=== PATIENT | male | born 1955 | race Caucasian/White ===

== ENCOUNTER 2023-12-04 09:46 | Outpatient (AMB) | payer MEDICARE, SELFPAY ==
--- NOTE | 2023-12-04 10:42 | HO.SPINEOV ---
Intake Visit Reasons: extremity weakness Intake Note: Mr. Rawls is here today c/o Low back pain. Balance Wheel Screw Hole Driller Required: No Allergies amoxicillin Allergy (Unknown, Verified 12/04/23 10:43) Diarrhea Assessment & Plan Assessment & Plan (1) Lumbar spinal stenosis due to adjacent segment disease after fusion procedure: Code(s): M48.061 - Spinal stenosis, lumbar region without neurogenic claudication; M51.36 - Other intervertebral disc degeneration, lumbar region Category: Medical Plan Dear colleague Thank you for referring Maik Rawls to the office today with a chief complaint of progressive right leg weakness. HPI: This 68-year-old male has an extensive spinal surgical history. He underwent an L3-4 and L4-5 decompression and finally a L3-4 fusion in 2021 for pain down his right leg and back pain. He recovered well from surgery and was symptom-free until August of this year where he developed progressive weakness of his right leg. He has fallen several times as his leg suddenly gives out. He also has a right stabbing pain on the right side of his back and a pain located on the medial side of his zayas and ankle. He developed persistent numbness of his left thigh after the last surgery. He tried physical therapy in the past without success. He is doing home exercises without success. PMH: Hypertension Medications: Lisinopril Allergies: Amoxicillin Social history: . Retired. Nonsmoker Physical Exam: Pleasant male. On inspection there is clear atrophy of his fright quadriceps. There is a grade 4/5 weakness of his right quadriceps. The knee reflex is decreased on the right side. There is hypoesthesia of the left thigh area. No pathological reflexes. Radiological Studies: MRI done at [facility] on 11/28/2023 show status post L3-4 fusion and interlaminar decompression L3-4 and L4-5 but more importantly there is severe right L4 foraminal stenosis. Impression/Plan: This patient is suffering from a right L4 radiculopathy with progressive weakneess due to severe right L4 foraminal stenosis and adjacent degenerative disc disease. I do not think that a simple decompression is going to be beneficial. Moreover there will be significant scar tissue from 3 previous surgeries interfering with the success over decompress the surgery. Therefore I recommended an additional minimally invasive fusion L4-5 through an oblique lumbar interbody fusion to indirectly decompress the foramen. I described the procedure complications expected postoperative course. He is going to think about this option and will call my office if he wants to proceed. He is aware that the weakness may not respond at all to surgery. Thank you for allowing me to participate in your patients care. total time spent was 50 minutes in counseling ,coordination of plan, personal review of imaging, surgical decision making and subsequent plan Jonny Omer MD, PhD Spine Fellowship Trained Neurosurgeon Director, [facility] Coding Level of Care Code New Pt Level 4 (22607) Diagnoses Lumbar spinal stenosis due to adjacent segment disease after fusion procedure M48.061; M51.36
== END 2023-12-04 11:44 | disposition home or self-care (01) ==
PROVIDERS: PCP Nurse Practitioner Family; Referring Provider Nurse Practitioner Family; Visit Provider Neurological Surgery
DX: M48.061 Spinal stenosis, lumbar region without neurogenic claudication (principal); M51.36 Other intervertebral disc degeneration, lumbar region
CPT/HCPCS: 99204

== ENCOUNTER → 2023-12-04 09:46 | Outpatient (BNVA) | payer MEDICARE, SELFPAY | PROVIDERS: PCP Nurse Practitioner Family; Visit Provider Neurological Surgery | DX: M48.061 Spinal stenosis, lumbar region without neurogenic claudication (principal); M51.36 Other intervertebral disc degeneration, lumbar region | CPT/HCPCS: 99202 ==

== ENCOUNTER 2024-04-29 05:59 | Inpatient (IN) | payer MEDICARE, SELFPAY ==
--- NOTE | 2024-04-20 | ECG_ITS ---
Test Reason : pre adm Blood Pressure : / mmHG Vent. Rate : 052 BPM Atrial Rate : 052 BPM P-R Int : 150 ms QRS Dur : 088 ms QT Int : 402 ms P-R-T Axes : 058 -01 000 degrees QTc Int : 373 ms Sinus bradycardia Otherwise normal ECG No previous ECGs available Referred By: Janet Tejada Electronically Signed By:KENDRA OROPEZA
[2024-04-20 12:08] VITALS: BP 138/67; PULSE 65; RESP 18; O2SAT 95; BMI 26.9
--- NOTE | 2024-04-20 12:21 | HO.ANESPROP2 ---
Documented by User: Janet Tejada NP 04/28/24 09:31 HPI - Anesthesia Eval Consult details Narrative: 69yo M for L4-5 Oblique Lumbar Interbody Fusion, 04/29/24 Optimized per PCP No recent illness No CP/SOB with yardwork COPD/Former smoker: Stable, no inhalers Daily THC gummies. Educated regarding preop hold PMFSH Active Problems Active Problems: All Active Problems Lumbar spinal stenosis due to adjacent segment disease after fusion procedure (Acute) Past Medical History Medical History Back pain Arthritis Fatty liver COPD (chronic obstructive pulmonary disease) Postoperative nausea HTN (hypertension) Surgical History Surgical History History of liver biopsy H/O colonoscopy Hx of nasal septoplasty Hx of tonsillectomy History of lumbar discectomy History of lumbar fusion Social History Social History Are you a primary memory care director to a significant other at home: No Do you presently have visiting nurse or other home services: No Patient Tobacco Use Status: Former Tobacco user Tobacco use type: Cigarette Years Smoked: 44 Use of substances other than those prescribed or required for medical reasons: Yes Substance Use Type Other:: marijuana gummies Substance Use Frequency: Daily Have you been hit, kicked, punched, or otherwise hurt by someone within the past year? If so, by whom?: No Are you DNR?: No Advance Directives Information Provided: Yes (as above noted) Advance Directives on File: No Recently lost weight without trying: No Eating poorly because of decreased appetite: No Nutrition Risks: No Nutritional Risk Poor oral hygiene: Yes (upper & lower partials) Meds Allergies Allergy/AdvReac Type Severity Reaction Status Date / Time amoxicillin AdvReac Intermediate Diarrhea Verified 04/20/24 11:59 Home Medications ?Medication ?Instructions ?Recorded ?Confirmed ?Last Taken ?Type lisinopril 20 mg tablet 20 mg PO QPM 04/17/24 04/29/24 04/28/24 History Exam Height,Weight and Vital Signs: Height 5 ft 5.25 in Weight 73.936 kg Last Vital Signs Pulse 65 04/20/24 12:08 Resp 18 04/20/24 12:08 BP 138/67 04/20/24 12:08 Pulse Ox 95 04/20/24 12:08 O2 Del Method Room Air 04/20/24 12:08 Pertinent Lab Results Pertinent Lab Results: Laboratory Tests 04/20/24 13:10 WBC 7.2 Hgb 16.9 Hct 49.8 Plt Count 236 Sodium 141 Potassium 4.0 Chloride 104 Carbon Dioxide 27 BUN 14 Creatinine 1.10 Narrative Narrative: EKG 04/2024 Vent. Rate : 052 BPM Atrial Rate : 052 BPM P-R Int : 150 ms QRS Dur : 088 ms QT Int : 402 ms P-R-T Axes : 058 -01 000 degrees QTc Int : 373 ms Sinus bradycardia Otherwise normal ECG No previous ECGs available Airway Mallampati Class: III TM Dist: >3cm Partial: Upper and Lower Loose/Missing/Broken Teeth: Yes (#9 broken) Heart: RRR Lungs: Fine crackles bilat bases, clears with cough. Otherwise CTA Assessment and Plan Assessment Anesthesia Assessment: Anesthesia Plan Discussed and PAT Visit Documented by User: Miladys Abbasi MD 04/29/24 08:30 PMFSH Past Medical History Medical History Back pain Arthritis Fatty liver COPD (chronic obstructive pulmonary disease) Postoperative nausea HTN (hypertension) Family History Family history of problems with anesthesia: No Surgical History Surgical History History of liver biopsy H/O colonoscopy Hx of nasal septoplasty Hx of tonsillectomy History of lumbar discectomy History of lumbar fusion History of Problems with Anesthesia: No Social History Social History Are you a primary memory care director to a significant other at home: No Do you presently have visiting nurse or other home services: No Patient Tobacco Use Status: Former Tobacco user Tobacco use type: Cigarette Years Smoked: 44 Use of substances other than those prescribed or required for medical reasons: Yes Substance Use Type Other:: marijuana gummies Substance Use Frequency: Daily Have you been hit, kicked, punched, or otherwise hurt by someone within the past year? If so, by whom?: No Are you DNR?: No Advance Directives Information Provided: Yes (as above noted) Advance Directives on File: No Recently lost weight without trying: No Eating poorly because of decreased appetite: No Nutrition Risks: No Nutritional Risk Poor oral hygiene: Yes (upper & lower partials) Meds Allergies Allergy/AdvReac Type Severity Reaction Status Date / Time amoxicillin AdvReac Intermediate Diarrhea Verified 04/20/24 11:59 Home Medications ?Medication ?Instructions ?Recorded ?Confirmed ?Last Taken ?Type lisinopril 20 mg tablet 20 mg PO QPM 04/17/24 04/29/24 04/28/24 History Assessment and Plan Final Anesthetic Review Family History of Problems with Anesthesia: No History of Problems with Anesthesia: No NPO: Yes ASA Class: III Final Preanesthetic Review: No Changes in Pt Med Stat, Meds/Allgs Chart Reviewed, Consent Obtained/Reviewed and Anes Risks/Benef Reviewed Patient Risk: Intermediate Procedure Risk: Intermediate Anesthetic Plan Anesthetic Plan: GA Disposition: Standard PACU
[2024-04-20 13:53] LABS: Hematocrit 49.8 % (42.0-52.0); Hemoglobin 16.9 g/dl (14.0-18.0); Mean Corpuscular HGB Conc 33.9 g/dl (31.0-36.0); Mean Corpuscular Hemoglobin 29.6 pg (27.0-33.0); Mean Corpuscular Volume 87.2 fL (80.0-98.0); Mean Platelet Volume 10.5 fL (9.4-12.4); Platelet Count 236 X10*3/uL (160-400); Red Blood Count 5.71 X10*6/uL (4.60-5.80); Red Cell Distribution Width 14.1 % (11.0-16.0); White Blood Count 7.2 X10*3/uL (4.8-10.8)
[2024-04-20 14:27] LABS: Anion Gap 14 (12-20); Blood Urea Nitrogen 14 mg/dL (9-16); Calcium 10.1 mg/dL (8.4-10.2); Carbon Dioxide 27 mmol/L (22-29); Chloride 104 mmol/L (96-108); Creatinine Clr Calc Pharmacy 59.5; Estimated Glomerular Filt Rate > 60; Glucose Random 95 mg/dL (60-115); Sodium 141 mmol/L (135-145)
[2024-04-29] VITALS (14 sets, daily range): BP systolic 124–166; BP diastolic 60–96; PULSE 73–100; RESP 13–22; TEMP 36.1–37.1; O2SAT 92–99; BMI 27.2; BMI 26.3
--- NOTE | ~2024-04-29 | FL_ITS ---
EXAMINATION: INTRAOPERATIVE FLUOROSCOPY LUMBAR SPINE CLINICAL INFORMATION: L4-L5 OLIF. COMPARISON: None available. TECHNIQUE: Intraoperative fluoroscopic imaging was provided to Dr. Jonny Omer during L4-L5 OLIF. Total Radiographic Images: 5. Exposure Time: 49.3 seconds. Dose Area Product: 8.3568 Gy-cm2. FINDINGS/ FL/FL guidance in OR IMPRESSION: Multiple intraoperative fluoroscopic images and/or radiographs demonstrate stages of L4-L5 OLIF. Imaging shows an interbody device at L4-L5 along with posterior pedicular screws at L3-L4 with an interbody device. Please see Dr. Omer' operative note for complete details. Electronically signed by: Jude Snyder MD 04/29/2024 06:00 PM EDT
--- OUTSIDE RECORDS SUMMARY | 2024-04-29 06:05 | XMS_ITS | Continuity of Care Document ---
Author Organization [facility] Address [address] [place] [address], [address] [place] [address]- Care Team Providers Care Ice Crusher Name Role Phone Yen JONES, Glenda Reddy Primary Care Physi bang Encounter [facility] [place] Date(s): 07/23/22 - 07/30/22 [facility] [address] [place] [address] Drive, [address] [place], [place] [address] [[email or web address]] Attending Physician: Prashanth Stokes MD Referring Physician: Glenda Barlow NP Allergies, Adverse Reactions, Alerts Substance Reaction Severity Status amoxicillin diarrhea Active Immunizations Given and Recorded Vaccine Date Status Refusal Reason SARS-CoV-2 mRNA (rbiialo-ijvs-pkbls) vax 09/11/21 Recorded SARS-CoV-2 (COVID-19) mRNA BNT-162b2 vac 03/09/21 Recorded SARS-CoV-2 (COVID-19) mRNA BNT-162b2 vac 02/16/21 Recorded Medications albuterol 0.083% inhalation solution 3 mL = 2.5 mg, Inhalation, Every 6 hours, # 120 each, 0 Refills, Maintenance, 04/20/22 15:59:00 EDT, Solution, Partial fill upon patient request if the prescription is for a schedule II opioid drug. Start Date: 04/20/22 Status: Ordered lisinopril 10 mg oral tablet 20 mg, 2, tablet, By Mouth, Daily, # 30 tablet, Refills 0, Maintenance, 06/19/18 10:21:14 EST Start Date: 06/19/18 Status: Ordered tiZANidine 2 mg oral tablet 2 mg, 1, tablet, By Mouth, Every 8 hours, # 42 tablet, Refills 0, Tot. Refills 0, Maintenance, 04/25/22 14:39:00 EDT, Route to Pharmacy Electronically, [facility], Partial fill upon patient request if the prescription is for a schedule I... Start Date: 04/25/22 Stop Date: 05/09/22 Status: Ordered Walker See Instructions, # 1 each, Maintenance, rolling walker for pain, 04/25/22 12:47:00 EDT, Supply Start Date: 04/25/22 Status: Ordered Problem List Condition Confirmation Course Effective Dates Status Health St atus Informant COPD (chronic obstructive pulmonary disease) Confirmed Active History of alcohol abuse Confirmed Active HLD (hyperlipidemia) Confirmed Active Lung nodule Confirmed Active Lumbar herniated disc Confirmed Active Patient Care team information Care Team Personnel Name: Tan DUQUE, Sharon Hernández Position: S RN Member Role: Primary Care Nurse Name: Christy Rosales RN Position: Miladis ESPINOSA RN Member Role: Primary Care Nurse Name: Glenda Barlow NP Position: Reference Physician Member Role: PCP Address: Address: [address] [place] [address]- Care Team Related Persons Name: MARIA DOLORES JARRETT Address: home [address] [place] [address]
--- OUTSIDE RECORDS SUMMARY | 2024-04-29 06:05 | XMS_ITS | Continuity of Care Document ---
Author Organization [facility] Address [address] [place] [address]- Care Team Providers Care Appointment Manager Name Role Phone Yen JONES, Glenda Reddy Primary Care Physi bang Encounter [facility] Date(s): 03/06/23 - 03/06/[address] [address] Attending Physician: Glenda Barlow NP Allergies, Adverse Reactions, Alerts Substance Reaction Severity Status amoxicillin diarrhea Active Immunizations Given and Recorded Vaccine Date Status Refusal Reason SARS-CoV-2 mRNA (ocfoagi-mhhj-pghlb) vax 09/11/21 Recorded SARS-CoV-2 (COVID-19) mRNA BNT-162b2 [...] 04/25/22 14:39:00 EDT, Route to Pharmacy Electronically, [facility], Partial fill upon patient [...] Care team information Care Team Personnel Name: Judith RN, Sharon Hernández Position: S RN Member Role: Primary Care Nurse Name: Christy Rosales RN Position: [facility] RN Member Role: Primary Care Nurse Name: Yen JONES, Glenda Reddy Position: Reference Physician Member Role: PCP Address: Address: [address] [place] [address]- Care Team Related Persons Name: KOLBY MARIA DOLORES Address: [address] [place] [address]
--- OUTSIDE RECORDS SUMMARY | 2024-04-29 06:05 | XMS_ITS | Continuity of Care Document ---
Author Organization [facility] Address [address] [place] [address], [address] [place] [address]- Care Team Providers Care Training Administrator Name Role Phone Yen JONES, Glenda Reddy Primary Care Physi bang Encounter [facility] [place] Date(s): 05/21/22 - 05/28/22 [facility] [address] [place] [address] Drive, [address] [place], [place] [address] Attending Physician: Prashanth Stokes MD Referring Physician: Glenda Barlow NP Allergies, Adverse Reactions, Alerts Substance Reaction Severity Status amoxicillin diarrhea Active Immunizations Given and Recorded Vaccine Date Status Refusal Reason SARS-CoV-2 mRNA (mbotngo-lpne-oltxx) vax 09/11/21 Recorded SARS-CoV-2 (COVID-19) mRNA BNT-162b2 [...] 04/25/22 14:39:00 EDT, Route to Pharmacy Electronically, [facility], Partial fill upon patient request [...] Confirmed Active Lumbar herniated disc Confirmed Active Vital Signs Most recent to oldest [Reference Range]: 1 Height 168 cm (05/21/22 10:33 AM) Weight 76.5 kg (05/21/22 10:33 AM) Body Mass Index [18.5-24.99 kg/m2] 27.1 kg/m2 *H* (05/21/22 10:33 AM) Patient Care team information Personnel Name: Yen JONES, Glenda Reddy Address: Address: [address] [facility] [place], [place] [address]
--- OUTSIDE RECORDS SUMMARY | 2024-04-29 06:05 | XMS_ITS | Continuity of Care Document ---
Author Organization [facility] Address [address] [place] [address] [address], [address] [place] [address]- Care Team Providers Care Resident Athletic Trainer Name Role Phone Yen JONES, Glenda Reddy Primary Care Physi bang Encounter [facility] Date(s): 05/01/22 - 05/31/[address], [address] [place], [place] [address] Allergies, Adverse Reactions, Alerts Substance Reaction Severity Status amoxicillin diarrhea Active Immunizations Given and Recorded Vaccine Date Status Refusal Reason SARS-CoV-2 mRNA (kcgcpkv-emag-mvghl) vax 09/11/21 Recorded SARS-CoV-2 (COVID-19) mRNA BNT-162b2 [...] disc Confirmed Active Patient Care team information Personnel Name: Yen JONES, Glenda Reddy Address: Address: [address] [place] [address], [place] [address]
--- OUTSIDE RECORDS SUMMARY | 2024-04-29 06:05 | XMS_ITS | Continuity of Care Document ---
Author Organization [facility] Address [address] [place] [address] [address], [address] [place] [address]- Care Team Providers Care Fitter Armament Name Role Phone Yen JONES, Glenda Reddy Primary Care Physi bang Encounter [facility] [place] Date(s): 04/03/22 - 05/03/[address], [address] [place], [place] [address] Allergies, Adverse Reactions, Alerts Substance Reaction Severity Status amoxicillin diarrhea Active Immunizations Given and Recorded Vaccine Date Status Refusal Reason SARS-CoV-2 mRNA (vwtvpom-uuco-dkwhw) vax 09/11/21 Recorded SARS-CoV-2 (COVID-19) mRNA BNT-162b2 [...] 10:21:14 EST Start Date: 06/19/18 Status: Ordered oxyCODONE 5 mg oral tablet 5 mg, 1, tablet, By Mouth, Every 4 hours, PRN, for 10 days, take 1-2 tablets every 4-6 hours as needed for pain, taper down as pain improved., # 60 tablet, Refills 0, Tot. Refills 0, Acute 05/05/22 14:38:00 EDT, Pain , Moderate, 04/25/22 14:38:00 EDT,... Start Date: 04/25/22 Stop Date: 05/05/22 Status: Ordered tiZANidine 2 mg oral tablet 2 mg, 1, tablet, By Mouth, Every 8 hours, # 42 tablet, Refills 0, Tot. Refills 0, Maintenance, 04/25/22 14:39:00 EDT, Route to Pharmacy Electronically, [facility], Partial fill upon patient request if the prescription is for a schedule I... Start Date: 04/25/22 Stop Date: 05/09/22 Status: Ordered Walker See Instructions, # 1 each, Maintenance, rolling walker for pain, 04/25/22 12:47:00 EDT, Supply Start Date: 04/25/22 Status: Ordered Problem List Condition Effective Dates Status Health Status Inform ant COPD (chronic obstructive pu lmonary disease)(Confirmed) Active History of alcohol abuse(Confirmed) Active HLD (hyperlipidemia)(Confirmed) Active Lung nodule(Confirmed) Active Lumbar herniated disc(Confirmed) Active Care Team Personnel Name: Yen JONES, Glenda Reddy Address: [address] [place] [address]-
--- OUTSIDE RECORDS SUMMARY | 2024-04-29 06:05 | XMS_ITS | Continuity of Care Document ---
Author Organization [facility] Address [address] [place] [address] [address], [address] [place] [address]- Care Team Providers Care Electronic Game Developer Name Role Phone Yen JONES, Glenda Reddy Primary Care Physi bang Encounter [facility] [place] Date(s): 03/14/22 - 03/21/[address], [address] [place], [place] [address] Attending Physician: Divya THACKER, Prashanth Sheldon Referring Physician: Glenda Barlow NP Allergies, Adverse Reactions, Alerts Substance Reaction Severity Status amoxicillin diarrhea Active Medications lisinopril 10 mg oral tablet 10 mg, 1, tablet, By Mouth, Daily, # 30 tablet, Refills 0, Maintenance, 06/19/18 10:21:14 EST Start Date: 06/19/18 Status: Ordered Percocet-5/325 325 mg-5 mg oral tablet 1-2, By Mouth, Every 6 hours, PRN, # 50 tablet, Refills 0, Tot. Refills 0, Maintenance, for pain, 07/02/18 9:41:35 EST, Print Requisition, Tablet Start Date: 07/02/18 Status: Ordered ProAir HFA 90 mcg/inh inhalation aerosol with adapter 1, puffs, Inhalation, Every 4 hours, PRN, # 8.5 Gm, Refills 0, Maintenance, 06/24/18 9:49:36 EST, Aerosol Start Date: 06/24/18 Status: Ordered Tylenol 325 mg oral tablet 650 mg, 2, tablet, By Mouth, Every 4 hours, PRN, # 120 tablet, Refills 0, Maintenance, for fever, 07/01/18 13:31:32 EST Start Date: 07/01/18 Status: Ordered Problem List Condition Effective Dates Status Health Status Inform ant COPD (chronic obstructive pu lmonary disease)(Confirmed) Active History of alcohol abuse(Confirmed) Active HLD (hyperlipidemia)(Confirmed) Active Lung nodule(Confirmed) Active Lumbar herniated disc(Confirmed) Active Vital Signs Most recent to oldest [Reference Range]: 1 Height 167.64 cm (03/14/22 1:01 PM) Weight 77.5 kg (03/14/22 1:01 PM) Body Mass Index [18.5-24.99] 27.58 *H* (03/14/22 1:01 PM)
--- OUTSIDE RECORDS SUMMARY | 2024-04-29 06:05 | XMS_ITS | Continuity of Care Document ---
Author Organization [facility] Address [address] [place] [address] [address], [address] [place] [address]- Care Team Providers Care Life Sciences Instructor Name Role Phone Yen JONES, Glenda Reddy Primary Care Physi bang Encounter [facility] [place] Date(s): 07/23/22 - 08/22/[address], [address] [place], [place] [address] Attending Physician: Admtr, Ar8 Admitting Physician: Admtr, Ar8 Referring Physician: Admtr, Ar8 Allergies, Adverse Reactions, Alerts Substance Reaction Severity Status amoxicillin diarrhea Active Immunizations Given and Recorded Vaccine Date Status Refusal Reason SARS-CoV-2 mRNA (mkvdmds-ixxl-xjquo) vax 09/11/21 Recorded SARS-CoV-2 (COVID-19) mRNA BNT-162b2 [...] 04/25/22 14:39:00 EDT, Route to Pharmacy Electronically, [facility], Partial fill upon patient [...] team information Care Team Personnel Name: Judith DUQUE, Sharon Hernández Position: S RN Member Role: Primary Care Nurse Name: Christy Rosales RN Position: [facility] RN Member Role: Primary Care Nurse Name: Yen JONES, Glenda Reddy Position: Reference Physician Member Role: PCP Address: Address: [address] [place] [address]- Care Team Related Persons Name: MARIA DOLORES JARRETT Address: home [address] [place] [address]
--- OUTSIDE RECORDS SUMMARY | 2024-04-29 06:05 | XMS_ITS | Continuity of Care Document ---
Author Organization [facility] Address [address] [place], [place] [address]isabella gaston, [address] [place] [address]- Care Team Providers Care Sales And Service Associate Name Role Phone Jigna THACKER, Cristian Jackson Primary Care Physician Encounter [facility] Date(s): 01/31/22 - 03/02/[address], [address] [place], [place] [address] Allergies, Adverse Reactions, Alerts Substance Reaction Severity [...]
--- OUTSIDE RECORDS SUMMARY | 2024-04-29 06:05 | XMS_ITS | Continuity of Care Document ---
Author Organization [facility] ter Address [address] [place] [id number]- Care Team Providers Care Field Artillery Targeting Technician Name Role Phone Yen JONES, Glenda Reddy Primary Care Physi [facility] emergency department Encounter [facility] [place] Date(s): 04/24/22 - 04/25/[address] [id number] Discharge Disposition: A-D/C Home Attending Physician: Prashanth Stokes MD Admitting Physician: Prashanth Stokes MD Referring Physician: Prashanth Stokes MD Allergies, Adverse Reactions, Alerts Substance Reaction Severity Status amoxicillin diarrhea Active Immunizations Given and Recorded Vaccine Date Status Refusal Reason SARS-CoV-2 mRNA (wuuykll-ynmn-qxkum) vax 09/11/21 Recorded SARS-CoV-2 (COVID-19) mRNA BNT-162b2 [...] oxyCODONE 5 mg oral tablet 5 mg, Tablet, By Mouth, Every 4 hours, Hold for: hypotension/sedation, PRN for Pain , Moderate, Routine, 04/24/22 12:54:00 EDT Start Date: 04/24/22 Stop Date: 04/26/22 Status: Discontinued oxyCODONE 5 mg oral tablet 5 mg, [...] 04/25/22 14:39:00 EDT, Route to Pharmacy Electronically, [email or web address], Partial fill upon patient request if [...] Lung nodule(Confirmed) Active Lumbar herniated disc(Confirmed) Active Results Radiology Reports * Exam Date Time Procedure Performing Provider Status 04/24/22 12:16 PM XR O-Arm Gladys Griffin (Verified) Notes: (XR O-Arm) Reason For Exam: Spondylolisthesis, TLIF RESULT: XR O-Arm XR O-Arm INDICATION: Reason: Spondylolisthesis, TLIF COMPARISONS: None TECHNIQUE: Limited CT images for intraoperative guidance. There is no radiologist in attendance. FLUOROSCOPY TIME: 5.57 EXPOSURE: 9.76 mGy TECHNOLOGIST TIME: 3 hours 35 minutes FINDINGS: Initial series shows instrumentation of the right iliac crest and degenerative changes of the lumbar spine. Subsequent series shows posterior instrumented fusion of the L3-L4 level with placement of paired pedicle screws at L3 and L4 as well as intervertebral disc spacer. Right laminotomy defect atL3-L4 and L4-L5. Limited visualization of the soft tissues and retroperitoneum. Expected postoperative changes in the posterior paraspinal soft tissues. Advanced atherosclerotic calcification of the aorta. IMPRESSION: See above. WSN: [id number] Ordering Physician: Prashanth Stokes Dictated By: Staci Bee MD Dictated Date/Time: 04/24/22 12:25 p Reviewed By: Staci Bee MD Signed By: Staci Bee MD Signed Date/Time: 04/24/22 12:25 pm Transcribed By: MARY BETH Transcribed Date/Time: 04/24/22 12:20 pm Vital Signs Most recent to oldest [Reference Range]: 1 2 3 Height 168 cm (04/25/22 2:32 PM) 168 cm (04/25/22 12:11 PM) 168 cm (04/25/22 11:37 AM) Weight 76.5 kg (04/24/22 4:47 PM) 76.5 kg (04/24/22 6:12 AM) 76.5 kg (04/20/22 4:22 PM) Oxygen Saturation [94-100 %] 95 % (04/25/22 11:37 AM) 90 % *L* (04/25/22 7:57 AM) 97 % (04/25/22 5:10 AM) Pulse Rate [55-90 bpm] 78 bpm (04/25/22 11:37 AM) 85 bpm (04/25/22 7:57 AM) 86 bpm (04/25/22 5:10 AM) Body Mass Index [18.5-24.99] 27.1 *H* (04/24/22 4:47 PM) 27.1 *H* (04/24/22 6:12 AM) 27.1 *H* (04/20/22 4:22 PM) Blood Pressure [90-138/55-84 mm Hg] 112/61mm Hg (04/25/22 2:32 PM) 104/58mm Hg (04/25/22 12:11 PM) 120/70mm Hg (04/25/22 7:57 AM) Respiratory Rate [16-30 br/min] 18 br/min (04/25/22 3:26 PM) 18 br/min (04/25/22 1:19 PM) 20 br/min (04/25/22 11:37 AM) Temperature [96.8-100.4 DegF] 97.5 DegF (04/25/22 11:37 AM) 98.4 DegF (04/25/22 7:57 AM) 98.6 DegF (04/25/22 5:10 AM) Liters per Minute 1 L/min (04/24/22 7:47 PM) 1 L/min (04/24/22 4:47 PM) 2 L/min (04/24/22 3:15 PM) Mode of Delivery (Oxygen) Room air (04/25/22 11:37 AM) Room air (04/25/22 7:57 AM) Room air (04/25/22 5:10 AM) Blood pressure sites Arm, left (04/25/22 2:32 PM) Arm, left (04/25/22 12:11 PM) Arm, left (04/25/22 7:57 AM) Temperature Route Oral (04/25/22 11:37 AM) Oral (04/25/22 7:57 AM) Oral (04/25/22 5:10 AM) Dry Weight 76.5 kg (04/24/22 4:47 PM) 76.5 kg (04/20/22 4:22 PM) Weight Obtained Via Patient/family state d (04/20/22 4:22 PM) Dry Weight Obtained Via Patient/family s tated (04/20/22 4:22 PM) Note * BHSPowerscribe , CIS S: TRANSCRIBE Cristal THACKER, Staci N: VERIFY Event Display: Result: Authored Date: XR O-Arm INDICATION: Reason: Spondylolisthesis, TLIF COMPARISONS: None TECHNIQUE: Limited CT images for intraoperative guidance. There is no radiologist in attendance. FLUOROSCOPY TIME: 5.57 EXPOSURE: 9.76 mGy TECHNOLOGIST TIME: 3 hours 35 minutes FINDINGS: Initial series shows instrumentation of the right iliac crest and degenerative changes of the lumbar spine. Subsequent series shows posterior instrumented fusion of the L3-L4 level with placement of paired pedicle screws at L3 and L4 as well as intervertebral disc spacer. Right laminotomy defect atL3-L4 and L4-L5. Limited visualization of the soft tissues and retroperitoneum. Expected postoperative changes in the posterior paraspinal soft tissues. Advanced atherosclerotic calcification of the aorta. IMPRESSION: See above. WSN: [id number] Ordering Physician: Prashanth Stokes Dictated By: Staci Bee MD Dictated Date/Time: 04/24/22 12:25 p Reviewed By: Staci Bee MD Signed By: Staci Bee MD Signed Date/Time: 04/24/22 12:25 pm Transcribed By: MARY BETH Transcribed Date/Time: 04/24/22 12:20 pm Care Team Personnel Name: Yen JONES, Glenda Reddy Address: [address] [place] [id number]-
--- OUTSIDE RECORDS SUMMARY | 2024-04-29 06:05 | XMS_ITS | Continuity of Care Document ---
Author Organization [facility] y Address [address] [place] [address] [address], [address] [place] [address]- Care Team Providers Care Front Window Cashier Name Role Phone Yen JONES, Glenda Reddy Primary Care Physi bang Encounter [facility] [place] Date(s): 02/23/22 - 03/25/[address], [address] [place], [place] [address] Allergies, Adverse Reactions, Alerts Substance Reaction [...]
--- OUTSIDE RECORDS SUMMARY | 2024-04-29 06:05 | XMS_ITS | Continuity of Care Document ---
Author Organization [facility] Address [address] [place] [address] [address], [address] [place] [address]- Care Team Providers Care Hand Counter Name Role Phone Yen JONES, Glenda Reddy Primary Care Physi bang Encounter [facility] [place] Date(s): 07/13/22 - 08/12/[address], [address] [place], [place] [id number] Allergies, Adverse Reactions, Alerts Substance Reaction Severity Status amoxicillin diarrhea Active Immunizations Given and Recorded Vaccine Date Status Refusal Reason SARS-CoV-2 mRNA (sksljma-wtok-mlvre) vax 09/11/21 Recorded SARS-CoV-2 (COVID-19) mRNA BNT-162b2 [...] team information Care Team Personnel Name: Tan RN, Sharon Hernández Position: S RN Member Role: Primary Care Nurse Name: Christy Rosales RN Position: [facility] RN Member Role: Primary Care Nurse Name: Yen JONES, Glenda Reddy Position: Reference Physician Member Role: PCP Address: Address: [address] [place] [id number]- Care Team Related Persons Name: KOLBY MARIA DOLORES Address: [address] [address]
[2024-04-29] MEDS: Gabapentin 300 MG CAPSULE PO ×3 (06:32→20:32)
[2024-04-29] MEDS: vancomycin HCL 1,000 MG in 0.9 % Sodium Chloride 250 ML 270 MG IV ×2 (06:32→17:34)
[2024-04-29] MEDS: Lactated Ringers 1,000 ML 100 ML IVCONT (06:32)
[2024-04-29] MEDS: methocarbamoL 750 MG TABLET PO (06:32)
--- NOTE | 2024-04-29 07:31 | P.HPSUR_ITS ---
Pre-Procedural Eval Section A - 24 Hr Update-Section A only Date of Service: 04/29/24 Section B - Complete if H&P > 30 days Chief Complaint: s/p L4-5 OLIF Allergies: Allergies Allergy/AdvReac Type Severity Reaction Status Date / Time amoxicillin AdvReac Intermediate Diarrhea Verified 04/20/24 11:59 Review of Systems Sugical H&P ROS: Negative: Constitution, Cardiovascular, Respiratory, Neurological, Psychiatric, Hem-Onc, Allergic/Immunologic, Gastrointestinal, Genitourinary, Musculoskeletal, Integumentary, Endocrine and Eyes/Ears/Nose/Throat Exam Surgical H&P Exam: Not Evaluated: HEENT, Not Evaluated: Heart, Not Evaluated: Lungs, Not Evaluated: Extremities, Not Evaluated: Abdomen, Not Evaluated: Skin and Not Evaluated: Neurological Exam Comment: Patient is well appearing in no acute distress. A&OX4. Abdomen soft & non- tender. Proposed incision site is clean and dry. Plan Diagnosis/Plan: Unchanged I have reviewed the history and physical and performed a pertinent physical examination on my patient. No changes have occurred unless specified. Plan remains the same, L4-5 OLIF WITH L3-4 Revision Time Spent With Patient Time: Total time managing care of this patient today __15__ minutes.
[2024-04-29] MEDS: Acetaminophen 1,000 MG/100 ML PIGGYBACK 400 MG IV (07:45)
--- NOTE | 2024-04-29 09:38 | P.OP_ITS ---
Operative Note Operative Note Date of Service: 04/29/24 Narrative: Preop Diagnosis: 1.) Right L4 radiculopathy due to neuroforaminal stenosis 2.) Status post L3-4 lumbar interbody fusion Procedure: 1) L4-5 discectomy, arthrodesis and implantation cage through an anterolateral, retroperitoneal approach 2) Removal of bilateral L3 screws; insertion bilateral L5 screws followed by L4- 5 posterior instrumented fusion 3) allograft Consent Informed Consent was obtained for this operation. I have explained the nature, purpose and benefits of the operation. I have discussed the risks and benefit of the operation including possible complications or adverse events with patient/family. Alternative(s) were discussed with the patient with their relative benefits and risks as well as the consequences of not accepting the operation were included in obtaining consent. Surgeon: AMARJIT QUINONES MD, PHD Procedure Assisted By: BETSY Bill Description of Procedure This 69-year-old male suffering from a right L4 radiculopathy due to severe neuroforaminal stenosis. He had a previous L3-4 fusion another institution. Imaging shows lumbar degenerative disc disease L4-5 and the neuroforaminal stenosis. The patient was offered an oblique lumbar interbody fusion L4-5. The procedure complications were explained. The patient was consented. The patient was brought to the operating room and endotracheally intubated. The patient was turned in a lateral position with the left side up. Prep and drape was done followed by timeout. A small incision was made in the left lower abdominal quadrant. The muscle fascia was opened after which the 3 muscle layer was split to enter the retroperitoneal space. Dilators were docked in the anterior one third of the L4-5 disc space followed by a retractor. The retractor was opened. The L4-5 disc space was exposed. An annulotomy was done after which an elevator Schwartz was used to release the disc material from its endplates and to perforate the contralateral side. A partial discectomy was done. An 8 mm and 10 mm height trial implant was inserted. The discectomy was completed. The endplates were prepared. An 10 x 50 mm with 6 degree lordosis 4 web cage filled with allograft was inserted into the disc space under fluoroscopic guidance. This resulted in elevation of the neuroforaminal height. The retractor was removed. Hemostasis was done. The incision was closed in 2 layers. Steri-Strips used to approximate incision. An OpSite with Tegaderm was used to cover the incision. This marked first part of the procedure. The patient was turned prone on the Anival spine table. 2C arms were installed for fluoroscopy. Prep and drape was done followed by a second timeout. The previous 2 paramedian incisions were opened and the L3-4 posterior instrumentation was exposed. The locking caps were removed followed by removal of the bilateral rods. The bilateral L3 screws were removed and the bilateral L4 screws were left in situ. The following steps were taken. A pediguard tap was used to create a transpedicular trajectory into the vertebral body. A K wire was placed. A specially designed instrument was advanced over the K wire to decorticate the posterolateral gutter in preparation for the posterolateral fusion. A pedicle screw was advanced over the K wire and the K wire was removed. The steps were done for the bilateral L5 pedicles. A total of 2 screws were placed with a diameter of 6.5 x 45 mm. Pedicle screws were connected with for mm hiram bilaterally and locked down with locking caps. The extension towers were removed. The posterolateral gutter was filled with allograft to complete the posterolateral L4-5 fusion Hemostasis was done and the incision was closed in 2 layers. Steri-Strips were used to approximate the incision. An OpSite were taken and was used to cover the incision. All sponge and needle counts were correct. Patient was extubated and transferred in stable is to recovery room. Anesthesia: General Estimated Blood Loss (ml): 30 mL Duration of Surgery: 1 hour 45 minutes Complications: None Postoperative Plan: Admit to inpatient for observation
[2024-04-29] MEDS: HYDROmorphone HCl 0.5 MG/0.5 ML SYRINGE 0.25 MG IVPUSH ×2 (10:20→10:25)
--- NOTE | 2024-04-29 10:36 | PHA.MEDREC ---
Addendum entered by Selene Norman RPh 04/29/24 11:12: Med rec review was reviewed by [facility]. Original Note: Pharmacy Consult ? Medication Reconciliation Pharmacy has reviewed the medication reconciliation done by nursing.
[2024-04-29] MEDS: LORazepam 2 MG/ML VIAL 0.5 MG IVPUSH (10:40)
--- NOTE | 2024-04-29 10:48 | P.DS_ITS ---
DS: Providers Provider Date of Service: 04/30/24 Date of admission: 04/29/24 05:59 Primary care physician: TELLO Vu DS: Summary Time Attestation Discharge Coordination Time (in mins): 10 Quality: Safe Use of Opioids Does Pt have an Active Cancer Diagnosis on the Problem List?: No Quality: Stroke Does the patient have a stroke diagnosis?: No Physical Exam Vital Signs: Vital Signs: Last Vital Signs Temp 97 F 04/29/24 10:17 Pulse 84 04/29/24 10:42 Resp 13 04/29/24 10:42 BP 158/77 H 04/29/24 10:42 Pulse Ox 99 04/29/24 10:42 O2 Del Method Nasal Cannula wit h Capnography 04/29/24 10:42 O2 Flow Rate 2 04/29/24 10:42 FiO2 40 04/29/24 10:42 BMI result Body Mass Index 27.2 Discharge Plan Discharge Anticipated Discharge Date/Time: 04/30/24 08:59 Patient Disposition: Home, Self-Care Discharge Diagnosis: s/p L3-4 Referrals: Glenda Barlow FNP [Primary Care Provider] - 1 Week Discharge Medications: New oxycodone-acetaminophen 5-325 mg tablet 1 tab PO Q6H PRN (Reason: pain) Qty: 30 0RF Rx Instructions: Partial Fill upon patient request. methocarbamol 750 mg tablet 750 mg PO TID Qty: 30 0RF Continued lisinopril 20 mg tablet 20 mg PO QPM Rx Instructions: takes at 6:00 pm daily Discharge Orders: Discharge Order (Routine); Ordered 04/30/24 Ordered By: Bronson Bello Diet: Advance to usual diet Activity on Discharge: As tolerated Stand Alone Forms: Patient Portal Discharge page Print Language: [place] Islander Activity Restrictions/Additional Instructions: After your spinal surgery we ask you to observe the following restrictions/guidelines: Activity: It is normal to feel some discomfort as you increase your activity, but that will improve with time. We ask you avoid heavy lifting or acitivities that cause pain. As a general rule, 8lbs is a safe limit for lifting right after surgery. Walk as much as you feel comfortable but not to exhaustion. You will feel extra tired the first few days after surgery. Stay well hydrated. It is OK to walk up and down stairs You may return to driving when you are off narcotics (such as vicodin, oxycodone, dilaudid, etc), and you are back to normal functional capacity. If you have any concerns please check with office before driving. Return to work is specific to each patient and each surgery, so please speak with your doctor/PA at first follow up. Please bring paperwork such as FMLA at that time if you need it filled out. Medications: We recommend you take 500mg Tylenol every 8 hours for the first few weeks after surgery, alongside the prescribed Percocet, if you do not have any liver issues and can tolerate this medication. Do not exceed 4,000mg daily. We will give you a short supply of narcotics after surgery (usually one weeks worth). If you need more please call the office but do not use more than prescribed. You will need to give our office 48 hours notice if you need narcotics refilled and we do not fill narcotics on weekends or evenings. If you are on a narcotic, it is a good idea to take a stool softener such as colace or senna to avoid constipation If you take blood thinner such as aspirin, Plavix, Coumadin, Effient, Eliquis etc for conditions such as Afib, DVT, Pulmonary embolus, coronary disease, stents etc please speak with your surgeon about specific details as to when you can resume these medications. You can resume NSAIDs on post op day 1 (eg: Motrin, Naproxen, etc). Follow up: Please call the office, , after surgery to arrange a 3 week follow up for wound check. Wound Care: You may remove your dressing on the first day after surgery. ?You may ?leave open to air. Please do not remove the steri strips underneath. they will fall off on their own in one week. IT IS NORMAL FOR THE WOUND TO OOZE OR BE BLOODY FOR A FEW DAYS AFTER SURGERY. ?IF THIS HAPPENS JUST PLACE NEW DRESSING OVER IT TO AVOID STAINING CLOTHES. You may shower on post op day # 1 We ask that you do not let the water soak the wound. If it does get wet, just towel dry lightly. Please do not scrub your incision or place any type of chemical/ointment on the wound. No tub baths, pools or jacuzzis for one month. If you have any leaking or redness from your wound, or fevers, please call the office. Care Plan Goals: Returned to normal activity as tolerated Health Concerns: None Plan of Treatment: Follow-up in clinic in 2-3 weeks Assessment: POD: 1 Procedure: L4-5 OLIF with L3-4 revision posterior instrumentation.
[2024-04-29] MEDS: Ketorolac Tromethamine 15 MG/ML VIAL IVPUSH ×2 (11:50→19:31)
[2024-04-29] MEDS: 0.9 % Sodium Chloride 1,000 ML 75 ML IVCONT (11:50)
[2024-04-29] MEDS: oxyCODONE HCl Immed Release 5 MG TABLET 10 MG PO (12:26)
[2024-04-29] MEDS: Acetaminophen 325 MG TABLET 975 MG PO ×2 (14:46→19:30)
[2024-04-29] MEDS: oxyCODONE HCl Immed Release 5 MG TABLET PO (18:34)
[2024-04-29] MEDS: Docusate Sodium 100 MG CAPSULE PO (20:32)
[2024-04-30] MEDS: Ketorolac Tromethamine 15 MG/ML VIAL IVPUSH (02:38)
[2024-04-30] MEDS: Acetaminophen 325 MG TABLET 975 MG PO ×2 (02:38→08:27)
[2024-04-30 03:21] VITALS: BP 125/66; PULSE 85; RESP 14; TEMP 36.3; O2SAT 93
[2024-04-30 07:59] VITALS: BP 125/68; PULSE 74; RESP 16; TEMP 36.6; O2SAT 92
[2024-04-30 08:19] VITALS: BP 125/68; PULSE 74; O2SAT 92
[2024-04-30] MEDS: Gabapentin 300 MG CAPSULE PO (08:29)
[2024-04-30] MEDS: Docusate Sodium 100 MG CAPSULE PO (08:41)
--- NOTE | 2024-04-30 10:11 | MHC.CM.PN ---
IMM delivered. Patient lives at home w/ . Functionally independent. Denies use of DME or services. PCP Glenda Barlow ATM MANAGER No HCP. Declines to complete. DP: Medically cleared for dc home self care. Brother to transport. RN aware.
--- NOTE | 2024-04-30 10:37 | HO.NEURO.PN ---
Neurosurgery Operative Note Date of Service: 04/30/24 Narrative: POD: 1 Procedure: L4-5 OLIF 69 y/o male POD:1 L4-5 OLIF. No acute overnight events. Patient reports he is up walking around is otherwise doing well. He was out of bed to chair eating breakfast when seen this morning on 3 . He feels his symptoms are much better than pre-operatively. He still reports mild pain in his low back, with good relief with pain medication. He is voiding well, tolerating diet. Afebrile, vital signs stable. Full strength 5/5 LEs. Anterolateral and back dressings have some staining without signs of hematoma. No active sanguineous drainage. Area is dry. Plan: 69 y/o male POD:1 L4-5 OLIF. Tolerating current pain regimen, voiding well, using bathroom unassisted. Patient meets criteria to be medically discharged home. His medication was sent to the pharmacy here at [facility]. Bronson Omer MD,PhD [facility]
--- NOTE | 2024-04-30 11:24 | HO.POSTANES ---
Post Anesthesia Evaluation Post Anesthesia Evaluation Date of Service: 04/29/24 Vital Signs: Vital Signs Temp Pulse Resp BP Pulse Ox O2 Del Method 04/30/24 08:19 74 125/68 92 04/30/24 07:59 97.9 F 74 16 125/68 92 Room Air 04/30/24 03:21 97.4 F 85 14 125/66 93 Room Air Anesthesia: General Mental Status: Awake Pain Control: Satisfactory Nausea/Vomiting: None Hydration: Adequate Anesthesia-Related Issues: No Anes. Related Issues
== END 2024-04-30 11:24 | disposition home or self-care (01) | DRG 460 ==
LOC: HO.SSSA 06:03 → HO.S3 10:43
PROVIDERS: Nurse Practitioner; Admitting Provider Neurological Surgery; PCP Nurse Practitioner Family; Visit Provider Neurological Surgery
PROC: 0SG00A0 Fusion of Lumbar Vertebral Joint with Interbody Fusion Device, Anterior Approach, Anterior Column, Open Approach (ICD-10-PCS; principal; 2024-04-29 07:30)
DX: M48.061 Spinal stenosis, lumbar region without neurogenic claudication (principal); J44.9 Chronic obstructive pulmonary disease, unspecified; M54.16 Radiculopathy, lumbar region; Z98.1 Arthrodesis status; Z87.891 Personal history of nicotine dependence; Z79.899 Other long term (current) drug therapy
CPT/HCPCS: 36415; 80048; 85027; 86850; 86900; 86901; 93005; 97162; C1713; C9290; J0131; J0665; J1100; J1170; J1885; J2060; J2371; J2405; J2704; J3010; J3370; L8699

== ENCOUNTER → 2024-04-29 05:59 | Outpatient (BNV) | payer MEDICARE, SELFPAY | PROVIDERS: Admitting Provider Neurological Surgery; PCP Nurse Practitioner Family; Visit Provider Neurological Surgery | DX: M48.062 Spinal stenosis, lumbar region with neurogenic claudication (principal) | CPT/HCPCS: 20930; 22558; 22612; 22840; 22853; 99024; 99499 ==

== ENCOUNTER 2024-05-21 13:51 | Outpatient (REF) | payer MEDICARE, SELFPAY | END 2024-05-21 13:52 | disposition home or self-care (01) | LOC: HO.HOSX 13:51 | PROVIDERS: PCP Nurse Practitioner Family; Visit Provider Physician Assistant | DX: M48.061 Spinal stenosis, lumbar region without neurogenic claudication (principal); M51.369 Other intervertebral disc degeneration, lumbar region without mention of lumbar back pain or lower extremity pain; Z98.1 Arthrodesis status | CPT/HCPCS: 99212 ==

== ENCOUNTER 2024-05-21 13:51 | Outpatient (AMB) | payer MEDICARE, SELFPAY ==
--- NOTE | 2024-05-21 13:58 | A.SPINEOV_ITS ---
Intake Visit Reasons: 1st post op Intake Note: Mr. Rawls is here today for his 1st post -op Data Lead Required: No Allergies amoxicillin Adverse Reaction (Intermediate, Verified 04/20/24 11:59) Diarrhea Assessment & Plan Assessment & Plan (1) Lumbar spinal stenosis due to adjacent segment disease after fusion procedure: Code(s): M48.061 - Spinal stenosis, lumbar region without neurogenic claudication; M51.36 - Other intervertebral disc degeneration, lumbar region Category: Medical Plan Mr Ortiz is 3 weeks out from his extension of fusion to L4-5 with an oblique lumbar interbody approach. The patient reports that he has been doing great after surgery. He has been up moving around, driving. He has been faithful maintained on the activity modifications and restrictions. His wounds have healed up beautifully. He has full strength in the lower extremities. I will see him back in 6 weeks with a set of x-rays. We discussed activity guidelines, restrictions and expectations after lumbar fusion. Cristian Omer MD, PhD [facility] Orders: Orders XR lumbar spine 4V min Today M48.061 - Spinal stenosis, lumbar region without neurogenic claudication, M51.36 - Other intervertebral disc degeneration, lumbar region Coding Level of Care Code Global (70133) Diagnoses Lumbar spinal stenosis due to adjacent segment disease after fusion procedure M48.061; M51.36
== END 2024-05-21 15:33 | disposition home or self-care (01) ==
PROVIDERS: PCP Nurse Practitioner Family; Visit Provider Physician Assistant
DX: M48.061 Spinal stenosis, lumbar region without neurogenic claudication (principal)
CPT/HCPCS: 99024

== ENCOUNTER 2024-07-02 13:06 | Outpatient (AMB) | payer MEDICARE, SELFPAY ==
--- NOTE | 2024-07-02 13:12 | HO.SPINEOV ---
Intake Visit Reasons: 2nd post op with xray Intake Note: Mr. Rawls is here today for his 2nd post-op visit. Senior Java Web Application Developer Required: No Allergies amoxicillin Adverse Reaction (Intermediate, Verified 04/20/24 11:59) Diarrhea Assessment & Plan Assessment & Plan (1) Lumbar spinal stenosis due to adjacent segment disease after fusion procedure: Code(s): M48.061 - Spinal stenosis, lumbar region without neurogenic claudication; M51.36 - Other intervertebral disc degeneration, lumbar region Category: Medical Plan Mr Ortiz is 2 months out from his extension of fusion to L4-5 via an oblique lumbar interbody fusion approach. He has been doing very well. His x-rays look great. He is back to most normal activities. We discussed activity guidelines, restrictions expectations after lumbar fusion. Overall I think he has had an excellent recovery. He has no limitations at this point. I can see him back on an as-needed basis. Cristian Omer MD, PhD [facility] Coding Level of Care Code Global (80494) Diagnoses Lumbar spinal stenosis due to adjacent segment disease after fusion procedure M48.061; M51.36
== END 2024-07-02 13:48 | disposition home or self-care (01) ==
PROVIDERS: PCP Nurse Practitioner Family; Visit Provider Physician Assistant
DX: M48.061 Spinal stenosis, lumbar region without neurogenic claudication (principal); M51.369 Other intervertebral disc degeneration, lumbar region without mention of lumbar back pain or lower extremity pain
CPT/HCPCS: 99024

== ENCOUNTER → 2024-07-02 13:06 | Outpatient (BNVA) | payer MEDICARE, SELFPAY | PROVIDERS: PCP Nurse Practitioner Family; Visit Provider Physician Assistant | DX: M48.061 Spinal stenosis, lumbar region without neurogenic claudication (principal); M51.369 Other intervertebral disc degeneration, lumbar region without mention of lumbar back pain or lower extremity pain | CPT/HCPCS: 72110; 99212 ==